=== PATIENT | female | born 1985 | race Caucasian/White ===

== ENCOUNTER → 2017-04-18 | Outpatient (CLI) | payer OTHER ==
[~2017-04-18] MED LIST: CAMRESE1 TAB PO; CLOMID50 MG PO; FLONASEALLERGY NS; LEXAPRO20 MG PO; PROBIOTIC FORMU1 CAP PO; PROTONIX 40MG T40 MG PO; PROVERA5 MG PO; TUMS EXTRA STR750 MG PO; TYLENOL 500MG500 MG PO; ZANTAC 300300 MG PO; ZOFRAN 4MG T4 MG/TAB PO; ZOFRAN ODT8 MG PO
[2017-04-18 11:42] LABS: BASO % 0.4 % (0.0-2.0); EOS % 0.2 % (0-4.0); GRAN # 2.7 (1.4-6.5); GRAN % 58.8 % (42.2-75.2); HEMOGLOBIN 13.2 g/dl (12.5-16.0); LYMPH # 1.5 (1.2-3.4); LYMPH % 31.3 % (20.0-51.0); MEAN CELL VOLUME 92 fl (80.0-100.0); MEAN CORPUSCULAR HEMOGLOBIN 30 pg (27.0-31.0); MEAN CORPUSCULAR HGB CONC 33 g/dl (33.0-37.0); MEAN PLATELET VOLUME 9.8 fl (7.4-10.4); MONO # 0.4 (0.1-0.6); MONO % 9.1 % (1.7-9.3); PLATELET COUNT 242 K/mm3 (130-400); RED BLOOD COUNT 4.35 M/mm3 (4.10-5.30); REDCELL DISTRIBUTION WIDTH-CV 13.2 % (11.5-14.5); WHITE BLOOD COUNT 4.6 K/mm3 (4.8-10.8)
[2017-04-18 11:52] LABS: ADJUSTED CALCIUM 8.2 mg/dL (8.4-10.2); ALBUMIN 3.8 gm/dL (3.5-5.0); BILIRUBIN,TOTAL 0.7 mg/dL (0.0-1.0); CREATININE, serum 0.62 mg/dL (0.52-1.25); POTASSIUM 3.9 mmol/L (3.4-5.0); TOTAL PROTEIN 6.7 gm/dL (6.4-8.2)
== END ==
LOC: COL.LAB 10:12
DX: R19.7 Diarrhea, unspecified (principal); R10.13 Epigastric pain; R11.0 Nausea

== ENCOUNTER 2017-04-21 13:27 | Day surgery (SDC) | payer OTHER ==
[~2017-04-21] VITALS: Ht 162.6 cm; Wt 60.8 kg
[2017-04-21 14:29] VITALS: BP 114/71; PULSE 68; TEMP 98.3
[2017-04-21 15:50] VITALS: BP 123/76; PULSE 79; TEMP 98
[2017-04-21 16:05] VITALS: BP 108/69; PULSE 75
[2017-04-21 16:20] VITALS: BP 110/72; PULSE 70
[2017-04-21 18:11] VITALS: BP 107/81; PULSE 93
== END 2017-04-21 16:37 | disposition home or self-care (01) ==
LOC: SDCO 13:27
DX: K21.9 Gastro-esophageal reflux disease without esophagitis (principal); K59.00 Constipation, unspecified; K22.8 Other specified diseases of esophagus; K31.89 Other diseases of stomach and duodenum; K30 Functional dyspepsia; K29.30 Chronic superficial gastritis without bleeding; J45.909 Unspecified asthma, uncomplicated; F41.9 Anxiety disorder, unspecified; F32.9 Major depressive disorder, single episode, unspecified; Z90.49 Acquired absence of other specified parts of digestive tract; Z83.71 Family history of colonic polyps
CPT/HCPCS: OP; J2250; J2405; J2704; J3010; J7030

== ENCOUNTER → 2017-05-27 | Outpatient (REF) | LOC: WSOH 14:00 | DX: Z02.89 Encounter for other administrative examinations (principal) ==

== ENCOUNTER → 2017-07-27 | Outpatient (REF) | LOC: WSOH 17:30 | DX: Z02.89 Encounter for other administrative examinations (principal) ==

== ENCOUNTER 2018-02-20 10:41 | Day surgery (SDC) | payer OTHER ==
[~2018-02-20] VITALS: Ht 162.6 cm; Wt 62.3 kg
[~2018-02-20 10:41] MED LIST changes: +ADVIL200 MG PO; +CARAFATE S1 GM/10 ML PO; +DAYSEE PO; +NASAL MOISTURIZ45 ML NS
[2018-02-20] MEDS ORDERED: CLARITIN 1010 MG/TAB PO (11:24)
[2018-02-20] MEDS ORDERED: FLONASEALLERGY NS (11:24)
[2018-02-20 11:38] VITALS: BP 102/59; PULSE 81; TEMP 97.4
[2018-02-20 14:55] VITALS: BP 106/67; PULSE 77; TEMP 99.4
[2018-02-20 15:10] VITALS: BP 103/59; PULSE 84
[2018-02-20] MEDS ORDERED: NORCO 325 MG-51 TAB PO (15:22)
[2018-02-20] MEDS ORDERED: ZOFRAN 4MG T4 MG/TAB PO (15:22)
[2018-02-20 15:25] VITALS: BP 97/52; PULSE 82
[2018-02-20 15:40] VITALS: BP 102/58; PULSE 78
[2018-02-20 15:47] VITALS: BP 98/54; PULSE 88; TEMP 99.4
== END 2018-02-20 16:10 | disposition home or self-care (01) ==
LOC: SDCO 10:41
DX: J32.0 Chronic maxillary sinusitis (principal); J32.2 Chronic ethmoidal sinusitis; J34.9 Unspecified disorder of nose and nasal sinuses; K21.9 Gastro-esophageal reflux disease without esophagitis; F32.9 Major depressive disorder, single episode, unspecified; F41.9 Anxiety disorder, unspecified; J45.909 Unspecified asthma, uncomplicated; Z88.1 Allergy status to other antibiotic agents; Z88.5 Allergy status to narcotic agent; Z88.6 Allergy status to analgesic agent; Z90.49 Acquired absence of other specified parts of digestive tract; Z79.51 Long term (current) use of inhaled steroids
CPT/HCPCS: J0330; J1100; J1170; J2405; J2704; J3010; J7120

== ENCOUNTER → 2018-07-19 | Outpatient (CLI) | payer OTHER ==
[~2018-07-19] MED LIST changes: +CLARITIN 1010 MG/TAB PO; +NORCO 325 MG-51 TAB PO
== END ==
LOC: COL.RAD 10:26
DX: N94.6 Dysmenorrhea, unspecified (principal); N92.0 Excessive and frequent menstruation with regular cycle; R93.8 Abnormal findings on diagnostic imaging of other specified body structures

== ENCOUNTER → 2018-08-08 | Outpatient (CLI) | payer OTHER | LOC: COL.RAD 07:56 | DX: N93.9 Abnormal uterine and vaginal bleeding, unspecified (principal); R93.89 Abnormal findings on diagnostic imaging of other specified body structures; Z90.49 Acquired absence of other specified parts of digestive tract | CPT/HCPCS: Q9967 ==

== ENCOUNTER → 2018-08-21 | Outpatient (CLI) | payer OTHER | LOC: COL.RAD 12:15 | DX: N93.9 Abnormal uterine and vaginal bleeding, unspecified (principal) | CPT/HCPCS: A9585 ==

== ENCOUNTER 2018-09-04 12:21 | Emergency (ER) | payer OTHER ==
[~2018-09-04] VITALS: Ht 162.6 cm; Wt 66.3 kg
[2018-09-04 12:35] VITALS: TEMP 98.4
[2018-09-04 13:37] LABS: BASO % 0.2 % (0.0-2.0); GRAN # 9.2 (1.4-6.5); GRAN % 89.9 % (42.2-75.2); HEMATOCRIT 41.3 % (37.0-47.0); LYMPH # 0.6 (1.2-3.4); LYMPH % 6.2 % (20.0-51.0); MEAN CELL VOLUME 88 fl (80.0-100.0); MEAN CORPUSCULAR HEMOGLOBIN 30 pg (27.0-31.0); MEAN CORPUSCULAR HGB CONC 34 g/dl (33.0-37.0); MEAN PLATELET VOLUME 8.8 fl (7.4-10.4); MONO # 0.4 (0.1-0.6); MONO % 3.4 % (1.7-9.3); PLATELET COUNT 274 K/mm3 (130-400)
[2018-09-04 13:47] LABS: BILIRUBIN,TOTAL 0.7 mg/dL (0.0-1.0); C-REACTIVE PROTEIN 2.2 mg/dL (0.0-0.9); CALCIUM 8.9 mg/dL (8.4-10.2); CREATININE, serum 0.6 mg/dL (0.52-1.25); POTASSIUM 3.8 mmol/L (3.4-5.0)
[2018-09-04] MEDS ORDERED: YAZ 28 3 MG-0.01 TAB PO (13:58)
[2018-09-04] MEDS ORDERED: ZYRTEC 10MG10 MG PO (13:59)
[2018-09-04] MEDS ORDERED: MASON NATURAL2000 IU (13:59)
[2018-09-04] MEDS ORDERED: AMOXICILLIN 8751 TAB PO (14:00)
[2018-09-04 14:13] LABS: COLLECTION METHOD CLEAN CATCH
[2018-09-04 14:21] LABS: MUCOUS Present /lpf; PH 5 (5-8); URINE APPEARANCE Clear; URINE BACTERIA Rare /hpf; URINE BILIRUBIN Negative (NEGATIVE); URINE BLOOD Negative (NEGATIVE); URINE COLOR Yellow; URINE GLUCOSE Negative (NEGATIVE); URINE KETONE Trace (NEGATIVE); URINE LEUKOCYTE ESTERASE Negative (NEGATIVE); URINE NITRATE Negative (NEGATIVE); URINE PROTEIN(semi-quant) 1+ (NEGATIVE); URINE RBC 0-2 /hpf; URINE UROBILINOGEN Negative (NEGATIVE)
[2018-09-04] MEDS ORDERED: PERCOCET 325 MG1 TA2 PO (14:53)
[2018-09-04] MEDS ORDERED: CARAFATE 1GM1 G PO (14:53)
[2018-09-04] MEDS ORDERED: ZOFRAN ODT4 MG PO (14:53)
[2018-09-04 15:07] VITALS: BP 120/76; PULSE 97
== END 2018-09-04 15:08 | disposition home or self-care (01) ==
LOC: COL.ER 12:21
PROVIDERS: Emergency Medicine
DX: K29.70 Gastritis, unspecified, without bleeding (principal); K21.9 Gastro-esophageal reflux disease without esophagitis; Z90.49 Acquired absence of other specified parts of digestive tract
CPT/HCPCS: J2060; J2405; J2550; J3010; J7030

== ENCOUNTER 2018-09-25 10:28 | Day surgery (SDC) | payer OTHER ==
[~2018-09-25] VITALS: Ht 162.6 cm; Wt 65.0 kg
[~2018-09-25 10:28] MED LIST changes: +AMOXICILLIN 8751 TAB PO; +CARAFATE 1GM1 G PO; +MASON NATURAL2000 IU PO; +PERCOCET 325 MG1 TA2 PO; +YAZ 28 3 MG-0.01 TAB PO; +ZOFRAN ODT4 MG PO; +ZYRTEC 10MG10 MG PO
[2018-09-25] MEDS ORDERED: CARAFATE 1GM1 G PO (10:57)
[2018-09-25] MEDS ORDERED: PERCOCET 325 MG1 TA2 PO ×2 (10:57→15:12)
[2018-09-25] MEDS ORDERED: FLEXERIL 1010 MG/TAB PO (10:58)
[2018-09-25] MEDS ORDERED: COLACE 100100 MG/CAP PO (10:59)
[2018-09-25 11:18] VITALS: BP 117/75; PULSE 70; TEMP 97.9
[2018-09-25 14:30] VITALS: BP 99/54; PULSE 78; TEMP 98.8
[2018-09-25 14:45] VITALS: BP 102/72; PULSE 77
[2018-09-25 15:00] VITALS: BP 101/60; PULSE 76
[2018-09-25 15:15] VITALS: BP 98/67; PULSE 80
== END 2018-09-25 15:45 | disposition home or self-care (01) ==
LOC: SDCO 10:28
DX: R10.30 Lower abdominal pain, unspecified (principal); K66.0 Peritoneal adhesions (postprocedural) (postinfection); Z79.899 Other long term (current) drug therapy; Z86.72 Personal history of thrombophlebitis; K21.9 Gastro-esophageal reflux disease without esophagitis; F32.9 Major depressive disorder, single episode, unspecified; F41.9 Anxiety disorder, unspecified; J45.909 Unspecified asthma, uncomplicated
CPT/HCPCS: J1100; J1956; J2175; J2405; J2704; J3010; J7120

== ENCOUNTER 2018-11-01 11:53 | Day surgery (SDC) | payer OTHER ==
[~2018-11-01] VITALS: Ht 162.6 cm; Wt 65.1 kg
[~2018-11-01 11:53] MED LIST changes: +COLACE 100100 MG/CAP PO; +FLEXERIL 1010 MG/TAB PO; +KRATOM PO; -MASON NATURAL2000 IU PO; +VITAMIND3 5000 PO
[2018-11-01 17:00] VITALS: BP 109/47; PULSE 78
[2018-11-01 17:15] VITALS: BP 105/64; PULSE 92
[2018-11-01] MEDS ORDERED: PERCOCET 325 MG1 TA2 PO (17:17)
[2018-11-01 17:30] VITALS: BP 111/58; PULSE 87
[2018-11-01 18:09] VITALS: BP 103/58; PULSE 76; TEMP 99.6
== END 2018-11-01 18:01 | disposition home or self-care (01) ==
LOC: SDCO 11:53
DX: J32.1 Chronic frontal sinusitis (principal); Z79.899 Other long term (current) drug therapy; K21.9 Gastro-esophageal reflux disease without esophagitis; M51.36 Other intervertebral disc degeneration, lumbar region; F32.9 Major depressive disorder, single episode, unspecified; F41.9 Anxiety disorder, unspecified
CPT/HCPCS: J1100; J1170; J2405; J2704; J3010; J7120

== ENCOUNTER 2018-11-15 05:33 | Day surgery (SDC) | payer OTHER ==
[~2018-11-15] VITALS: Ht 162.6 cm; Wt 65.0 kg
[2018-11-15] VITALS (12 sets, daily range): BP systolic 91–115; BP diastolic 51–77; PULSE 72–104; TEMP 97.7–98.5
[~2018-11-15 05:33] MED LIST changes: +CIPRO 500MG TA500 MG PO
[2018-11-15] MEDS ORDERED: IBU600 MG PO (16:44)
[2018-11-15] MEDS ORDERED: PERCOCET 325 MG1 TA2 PO (16:44)
[2018-11-16 04:30] VITALS: BP 104/65; PULSE 89; TEMP 98
[2018-11-16 07:30] VITALS: BP 101/61; PULSE 80
--- NOTE | 2018-11-16 09:14 | NUR ---
Initial visit; Patient experiencing discomfort. Patcher offered encouragement and prayer for a rapid recovery.
== END 2018-11-16 09:30 | disposition home or self-care (01) ==
LOC: SDCO 05:33 → OB 10:13 → SDCO 16:42 → OB 16:43 → SDCO 16:43 → OB 11-16 09:30
DX: D06.9 Carcinoma in situ of cervix, unspecified (principal); G89.29 Other chronic pain; R10.2 Pelvic and perineal pain; N94.6 Dysmenorrhea, unspecified; N92.0 Excessive and frequent menstruation with regular cycle; K21.9 Gastro-esophageal reflux disease without esophagitis; J32.9 Chronic sinusitis, unspecified; F41.9 Anxiety disorder, unspecified; F32.9 Major depressive disorder, single episode, unspecified; G43.909 Migraine, unspecified, not intractable, without status migrainosus; D68.59 Other primary thrombophilia; Z88.8 Allergy status to other drugs, medicaments and biological substances; Z88.1 Allergy status to other antibiotic agents; Z88.5 Allergy status to narcotic agent; Z82.49 Family history of ischemic heart disease and other diseases of the circulatory system; Z83.3 Family history of diabetes mellitus; Z82.3 Family history of stroke; Z80.0 Family history of malignant neoplasm of digestive organs; Z90.49 Acquired absence of other specified parts of digestive tract
CPT/HCPCS: A4314; J1100; J1170; J1956; J2175; J2300; J2405; J2704; J3010; J7120

== ENCOUNTER → 2018-11-22 | Outpatient (CLI) | payer OTHER ==
[~2018-11-22] MED LIST changes: +IBU600 MG PO
== END ==
LOC: COL.RAD 11:33
DX: G89.18 Other acute postprocedural pain (principal); Z90.710 Acquired absence of both cervix and uterus
CPT/HCPCS: Q9967

== ENCOUNTER 2018-12-21 23:07 | Emergency (ER) | payer OTHER ==
[~2018-12-21] VITALS: Ht 162.6 cm; Wt 63.6 kg
[2018-12-21 23:10] VITALS: TEMP 98.3
[2018-12-21 23:58] LABS: BASO % 0.4 % (0.0-2.0); EOS # 0.2 (0.0-0.7); EOS % 2.7 % (0-4.0); GRAN # 3.9 (1.4-6.5); HEMATOCRIT 39.1 % (37.0-47.0); HEMOGLOBIN 13.1 g/dl (12.5-16.0); LYMPH # 2.7 (1.2-3.4); LYMPH % 36.4 % (20.0-51.0); MEAN CELL VOLUME 87 fl (80.0-100.0); MEAN CORPUSCULAR HEMOGLOBIN 29 pg (27.0-31.0); MEAN CORPUSCULAR HGB CONC 34 g/dl (33.0-37.0); MONO # 0.5 (0.1-0.6); MONO % 6.2 % (1.7-9.3); PLATELET COUNT 298 K/mm3 (130-400); REDCELL DISTRIBUTION WIDTH-CV 12.9 % (11.5-14.5)
[2018-12-22 00:34] LABS: ALANINE AMINOTRANSFERASE 18 U/L (9-52); ALBUMIN 4.2 gm/dL (3.5-5.0); ALKALINE PHOSPHATASE 56 U/L (50-136); ANION GAP 10 mmol/L (7-16); AST,SGOT 19 U/L (15-37); BILIRUBIN,TOTAL 0.3 mg/dL (0.0-1.0); BLOOD UREA NITROGEN 15 mg/dL (7-17); CALCIUM 9.7 mg/dL (8.4-10.2); CARBON DIOXIDE 23 mmol/L (22-30); CHLORIDE 106 mmol/L (98-107); CREATININE, serum 0.81 mg/dL (0.52-1.25); GLUCOSE 109 mg/dL (74-106); LIPASE 135 U/L (23-300); SODIUM 140 mmol/L (137-145); TOTAL PROTEIN 7.2 gm/dL (6.4-8.2)
[2018-12-22 00:43] LABS: ACETAMINOPHEN < 10 ug/mL (10-30); ALCOHOL(ethanol),MEDICAL < 10 mg/dL; SALICYLATE < 1.0 mg/dL
[2018-12-22] MEDS ORDERED: ATARAX 25MG25 MG/TAB PO (01:30)
[2018-12-22 01:45] VITALS: BP 101/64; PULSE 85
== END 2018-12-22 02:10 | disposition home or self-care (01) ==
LOC: COL.ER 23:07
PROVIDERS: Emergency Medicine
DX: F41.0 Panic disorder [episodic paroxysmal anxiety] (principal); F41.9 Anxiety disorder, unspecified; Z90.49 Acquired absence of other specified parts of digestive tract
CPT/HCPCS: J1200; J1630; J2060; J2550

== ENCOUNTER 2018-12-28 18:08 | Observation (INO) | payer OTHER ==
[~2018-12-28] VITALS: Ht 162.6 cm; Wt 68.1 kg
[~2018-12-28 18:08] MED LIST changes: +ATARAX 25MG25 MG/TAB PO
[2018-12-28 19:19] LABS: BASO % 0.3 % (0.0-2.0); EOS # 0.3 (0.0-0.7); EOS % 2.4 % (0-4.0); GRAN # 6.9 (1.4-6.5); GRAN % 62.2 % (42.2-75.2); HEMATOCRIT 37.3 % (37.0-47.0); HEMOGLOBIN 12.7 g/dl (12.5-16.0); LYMPH # 3.2 (1.2-3.4); LYMPH % 29.2 % (20.0-51.0); MEAN CELL VOLUME 87 fl (80.0-100.0); MEAN CORPUSCULAR HEMOGLOBIN 30 pg (27.0-31.0); MEAN CORPUSCULAR HGB CONC 34 g/dl (33.0-37.0); MEAN PLATELET VOLUME 8.9 fl (7.4-10.4); MONO # 0.6 (0.1-0.6); MONO % 5.5 % (1.7-9.3); PLATELET COUNT 326 K/mm3 (130-400); RED BLOOD COUNT 4.31 M/mm3 (4.10-5.30)
[2018-12-28] MEDS ORDERED: ATIVAN 0.50.5 MG/TAB PO (19:27)
[2018-12-28] MEDS ORDERED: CARAFATE 1GM1 G PO (19:27)
[2018-12-28 19:30] LABS: ALANINE AMINOTRANSFERASE 57 U/L (9-52); ALBUMIN 4.4 gm/dL (3.5-5.0); ALKALINE PHOSPHATASE 87 U/L (50-136); ANION GAP 13 mmol/L (7-16); AST,SGOT 126 U/L (15-37); BILIRUBIN,TOTAL 0.6 mg/dL (0.0-1.0); BLOOD UREA NITROGEN 10 mg/dL (7-17); C-REACTIVE PROTEIN < 0.5 mg/dL (0.0-0.9); CALCIUM 9.8 mg/dL (8.4-10.2); CARBON DIOXIDE 23 mmol/L (22-30); CHLORIDE 100 mmol/L (98-107); CREATININE, serum 0.71 mg/dL (0.52-1.25); GLUCOSE 142 mg/dL (74-106); LIPASE 256 U/L (23-300); POTASSIUM 3.1 mmol/L (3.4-5.0); SODIUM 136 mmol/L (137-145); TOTAL PROTEIN 7.4 gm/dL (6.4-8.2)
[2018-12-28 19:50] LABS: COLLECTION METHOD CLEAN CATCH
[2018-12-28 19:56] LABS: PH 7 (5-8); SQUAMOUS EPITHELIAL 0-2 /hpf; URINE APPEARANCE Clear; URINE BACTERIA Rare /hpf; URINE BILIRUBIN Negative (NEGATIVE); URINE BLOOD Negative (NEGATIVE); URINE COLOR Yellow; URINE GLUCOSE Negative (NEGATIVE); URINE KETONE 1+ (NEGATIVE); URINE LEUKOCYTE ESTERASE Negative (NEGATIVE); URINE NITRATE Negative (NEGATIVE); URINE PROTEIN(semi-quant) Negative (NEGATIVE); URINE RBC 0-2 /hpf; URINE UROBILINOGEN Negative (NEGATIVE)
[2018-12-28 23:08] VITALS: BP 117/64; PULSE 84; TEMP 98.6
--- NOTE | 2018-12-28 23:30 | NUR ---
PT ADMITTED TO SURGICAL FLOOR. A&O X4. IV FLUIDS INFUSING WITHOUT ISSUE. PT REQUESTING PRN PAIN MEDS, STATED SHE STARTING TO FEEL THE PAIN AND WANTS TO STAY ON TOP OF IT. NO OTHER ISSUES OR CONSERNS VOICED.
--- NOTE | 2018-12-29 07:00 | NUR ---
PT HAS RECIEVED A COUPLE OF ROUND OF PAIN MEDICATION THIS NOC. POTASSIUM INFUSING CONCURRENLY WITH NS. SITE HAS SOME MINIMAL LEAKING, IV SITE REPOSIITONED AND REDRESSED, NOTED BLOOD RETURN FROM SITE AND FLUSHED WELL. IV SITE REMAINED UNREMARKABLE AFTERWARDS, FLUIDS RESTARTED RIGHT AFTER AND RUNNING WITHOUT ISSUE. NO OTHER ISSUES OR CONSERNS VOICED THIS NOC.
--- NOTE | 2018-12-29 07:30 | NUR ---
Report received from LORENA Hunt. Per pt IV site leaking, LORENA Kellogg on floor fixed it and now is running well in R A/C.
[2018-12-29 07:36] LABS: BASO % 0.5 % (0.0-2.0); EOS # 0.4 (0.0-0.7); EOS % 6.1 % (0-4.0); GRAN # 3.3 (1.4-6.5); GRAN % 52.1 % (42.2-75.2); HEMOGLOBIN 11.1 g/dl (12.5-16.0); LYMPH # 2.2 (1.2-3.4); LYMPH % 34.8 % (20.0-51.0); MEAN CELL VOLUME 89 fl (80.0-100.0); MEAN CORPUSCULAR HEMOGLOBIN 30 pg (27.0-31.0); MEAN CORPUSCULAR HGB CONC 33 g/dl (33.0-37.0); MEAN PLATELET VOLUME 9.3 fl (7.4-10.4); MONO # 0.4 (0.1-0.6); MONO % 6.3 % (1.7-9.3); PLATELET COUNT 253 K/mm3 (130-400); RED BLOOD COUNT 3.76 M/mm3 (4.10-5.30); REDCELL DISTRIBUTION WIDTH-CV 13.2 % (11.5-14.5)
[2018-12-29 07:37] LABS: HEMATOCRIT 33.6 % (37.0-47.0)
[2018-12-29 07:54] LABS: ALBUMIN 3.3 gm/dL (3.5-5.0); BILIRUBIN,TOTAL 0.4 mg/dL (0.0-1.0); CALCIUM 8.7 mg/dL (8.4-10.2); CREATININE, serum 0.7 mg/dL (0.52-1.25); POTASSIUM 4.1 mmol/L (3.4-5.0); TOTAL PROTEIN 5.7 gm/dL (6.4-8.2)
[2018-12-29 08:24] VITALS: BP 97/71; PULSE 64; TEMP 98
--- NOTE | 2018-12-29 08:26 | NUR ---
Assessment charted. PT reports pain at 5/10 to RUQ that will spread to flank on occasion. IVF and potassium running. Pain and nausea under control with medications. Denies needs, will continue to monitor.
--- NOTE | 2018-12-29 10:28 | NUR ---
Initial visit; Patient thanked Coffee Grinder for looking in on her, visiting and keeping her in Coffee Grinder's prayers.
--- NOTE | 2018-12-29 10:57 | NUR ---
Pt went down to MRI with MRI staff, will continue to monitor.
[2018-12-29 12:43] VITALS: BP 106/61; PULSE 69; TEMP 98.5
--- NOTE | 2018-12-29 12:58 | NUR ---
Pt returned form MRCP at approximately 1140 with diffuse abd pain and nausea. Gave remaining dose of IV fentanyl. Called Ashley as pain and nausea is not resolved, she will see the patient and we will continue to monitor.
--- NOTE | 2018-12-29 14:00 | NUR ---
Started MANAGER CT level 1 dilaudid per orders for diffuse abdominal pain. Pt exhibits no signs of guarding or retracting from pain. Verified with supervisor wash house Asa. Will continue to monitor.
--- NOTE | 2018-12-29 14:42 | NUR ---
SATNAM and SW student met with the patient to discuss discharge plan. The patient lives in [place] with her (Girish) and daughter. The patient does not use any DME and reports independence with ADLs. The patient's PCP is Dr. Cher Duron and she receives her medications from [facility]. The patient reports no difficulties obtaining her medications. The patient does not have a DPOA-HC for completed but was interested in obatining the form. SATNAM provided the form. The patient plans to return home with her family upon discharge. No additional needs at this time.
[2018-12-29 15:50] VITALS: BP 107/76; PULSE 81; TEMP 97.5
--- NOTE | 2018-12-29 18:34 | NUR ---
Pt has done well and pain is managed since MATHEMATICS TEACHER was initiated. Pt has had visitors to see her this evening. IVF continues with MATHEMATICS TEACHER to RH. Will give bedside shift report to nightshifarzana carrero who will resuem care.
[2018-12-29 20:00] VITALS: BP 101/73; PULSE 101
--- NOTE | 2018-12-29 21:00 | NUR ---
Patient resting in bed at this time. Patient is alert and oriented, answers questions appropriately. Dilaudid level [address] per order. Patient complains of a headache that is not relieved with LABORER VEGETABLE FARM use. Patient reports that she sometimes uses NSAIDs at home to relieve headaches, but is worried that they will worsen her nausea since she is NPO. Patient decides to attempt to sleep to see if that relieves her headache. Administered PRN zofran for nausea. Call light within reach.
[2018-12-29 21:39] VITALS: BP 101/73; PULSE 101; TEMP 100.7; TEMP 98.7
[2018-12-29 23:57] VITALS: BP 103/63; PULSE 119; TEMP 99.6
[2018-12-30] VITALS (11 sets, daily range): BP systolic 94–116; BP diastolic 53–68; PULSE 92–119; TEMP 98–99.5
--- NOTE | 2018-12-30 00:45 | NUR ---
Patient continues to c/o headache and nausea, also running a low grade fever with some tachycardia. Called hospitalist to report symptoms. Patient reports that she has had migranes in the past, but hasn't had one for "years" and did not take medication for it. States she is willing to try medication for a migrane. Administered SQ imitrex per order. Patient requests PRN zofran, informed patient that it is about half an hour too soon, but will bring it as soon as order allows. Call light within reach.
--- NOTE | 2018-12-30 02:12 | NUR ---
ON 12/29/18 AT 2300 PER PT REQUEST RADIOLOGY ADMINISTRATOR AND ETCO2 WERE SHUT OFF. NO CHECKS HAVE BEEN DONE SINCE THEN. HOWEVER AN ORDER IS STILL IN IF PT WANTS TO GO BACK ON IT AND WILL NOT DC INTERVENTION
--- NOTE | 2018-12-30 05:45 | NUR ---
Patient requested DISTRICT CAPTAIN be turned off around 2300 last night so she could sleep without the EtCO2 alarming. Pump was turned off per patient request with instructions to call when she needed it turned back on. Patient called at approximately 0230 and DISTRICT CAPTAIN was turned back on per order and patient request. Patient reports that the SQ imitrex has relieved her headache and she was able to sleep for a few hours. Patient has no complaints of nausea this morning and was independent to bathroom and to brush her teeth this morning. Patient denies further needs at this time, call light within reach.
--- NOTE | 2018-12-30 08:00 | NUR ---
PATIENT IS RESTING IN BED. PATIENT IS DROWSY THIS MORNING BUT AROUSES EASILY TO NAME. PATIENT IS A&O. VSS. BOWEL SOUNDS ACTIVE ALL FOUR QUADRANTS. PATIENT IS NPO. PATIENT DENIES ANY COMPLAINTS OF N/V. POSITIVE PEDAL PULSES EQUAL BILATERALLY. IV FLUIDS AND LACE ROLLER OPERATOR INFUSING TO RIGHT HAND IV VIA PUMP. CALL LIGHT WITHIN REACH. PATIENT DENIES ANY OTHER NEEDS AT THIS TIME.
[2018-12-30 08:06] LABS: BASO % 0.3 % (0.0-2.0); EOS # 0.1 (0.0-0.7); EOS % 0.6 % (0-4.0); GRAN % 81.1 % (42.2-75.2); HEMOGLOBIN 11.8 g/dl (12.5-16.0); LYMPH # 1.6 (1.2-3.4); LYMPH % 13.2 % (20.0-51.0); MEAN CELL VOLUME 90 fl (80.0-100.0); MEAN CORPUSCULAR HEMOGLOBIN 29 pg (27.0-31.0); MEAN CORPUSCULAR HGB CONC 33 g/dl (33.0-37.0); MONO # 0.6 (0.1-0.6); MONO % 4.5 % (1.7-9.3); PLATELET COUNT 251 K/mm3 (130-400); RED BLOOD COUNT 4.02 M/mm3 (4.10-5.30); REDCELL DISTRIBUTION WIDTH-CV 13.1 % (11.5-14.5)
[2018-12-30 08:12] LABS: HEMATOCRIT 36.3 % (37.0-47.0)
[2018-12-30 08:26] LABS: ALBUMIN 3.7 gm/dL (3.5-5.0); BILIRUBIN,TOTAL 0.7 mg/dL (0.0-1.0); CALCIUM 8.6 mg/dL (8.4-10.2); CREATININE, serum 0.76 mg/dL (0.52-1.25); MAGNESIUM 1.7 mg/dL (1.6-2.3); TOTAL PROTEIN 6.3 gm/dL (6.4-8.2)
--- NOTE | 2018-12-30 11:50 | NUR ---
PATIENT GIVEN PRN DOSE OF IV DILAUDID PUSH DUE TO ANALOG IC DESIGN ENGINEER PUMP BEING EMPTY AND NO NEW ANALOG IC DESIGN ENGINEER VIALS IN OMNICELL. PATIENT BECAME NAUSEATED AFTER IV DILAUDID PUSH AND REQUESTED NAUSEA MEDICATION. PATIENT DEVELOPED HIVES AROUND IV SITE AND SKIN BECAME REDDENED. PATIENT GIVEN IV ZOFRAN AND BENADRYL. DR. HUNG NOTIFIED OF REACTION TO IV DILAUDID PUSH. NO ORDERS GIVEN AT THIS TIME. WILL CONTINUE TO MONITOR PATIENT'S ALLERGIC REACTION AND RESPIRATORY STATUS.
--- NOTE | 2018-12-30 17:17 | NUR ---
UPON ENTRY TO ROOM PATIENT HAS FACIAL FLUSHING. PATIENT REPORTS ACHING PAIN IN HER HEAD THAT WRAPS AROUND TO THE BASE OF HER NECK A 9/10 ON A 0-10 SCALE. PATIENT ALSO REPORTS SINUS PRESSURE WITH BLOOD-TINGED DRAINAGE WHEN SHE BLOWS HER NOSE. DR. HUNG NOTIFIED. ONE TIME DOSE OF ROBAXIN ORDERED.
--- NOTE | 2018-12-30 17:30 | NUR ---
PATIENT GIVEN PRN DOSE OF ZOFRAN FOR NAUSEA. WILL CONTINUE TO MONITOR.
--- NOTE | 2018-12-30 19:01 | NUR ---
REPORT GIVEN TO RICHARD UGALDE.
--- NOTE | 2018-12-30 20:00 | NUR ---
Patient resting in bed at this time. Patient is alert and oriented, answers questions appropriately. MANAGER UTILITY in place per order. Patient remains independent in her room. Denies needs at this time, but does request several PRN medications with her HS meds. Call light within reach.
[2018-12-31] VITALS (9 sets, daily range): BP systolic 102–119; BP diastolic 62–88; PULSE 73–110; TEMP 98–99.2
--- NOTE | 2018-12-31 08:00 | NUR ---
PATIENT SITTING UP IN BED THIS MORNING. PATIENT IS DROWSY, BUT EASILY AROUSABLE TO NAME. FACIAL FLUSHING NOTED UPON ASSESSMENT. PATIENT IS A&O. VSS. BOWEL SOUNDS ACTIVE ALL FOUR QUADRANTS. PATIENT TOLERATING CLEAR LIQUIDS. PATIENT STATES THAT SHE FEELS NAUSEATED, BUT DENIES ANY EPISODES OF EMESIS AT THIS TIME. POSITIVE PEDAL PULSES EQUAL BILATERALLY. NON-PITTING EDEMA TO FEET BILATERALLY. IV FLUIDS WITH DILAUDID SOLUTION LEAD INFUSING TO RIGHT HAND IV VIA PUMP. CALL LIGHT WITHIN REACH. PATIENT DENIES ANY OTHER NEEDS AT THIS TIME.
[2018-12-31 08:09] LABS: BASO % 0.1 % (0.0-2.0); EOS # 0.1 (0.0-0.7); EOS % 1.3 % (0-4.0); GRAN # 5.9 (1.4-6.5); GRAN % 71.7 % (42.2-75.2); HEMATOCRIT 32.3 % (37.0-47.0); HEMOGLOBIN 10.4 g/dl (12.5-16.0); LYMPH # 1.6 (1.2-3.4); LYMPH % 20.1 % (20.0-51.0); MEAN CELL VOLUME 91 fl (80.0-100.0); MEAN CORPUSCULAR HEMOGLOBIN 29 pg (27.0-31.0); MEAN CORPUSCULAR HGB CONC 32 g/dl (33.0-37.0); MEAN PLATELET VOLUME 8.9 fl (7.4-10.4); MONO # 0.5 (0.1-0.6); MONO % 6.6 % (1.7-9.3); PLATELET COUNT 214 K/mm3 (130-400); RED BLOOD COUNT 3.55 M/mm3 (4.10-5.30); REDCELL DISTRIBUTION WIDTH-CV 13.3 % (11.5-14.5)
[2018-12-31 08:28] LABS: ALBUMIN 3.5 gm/dL (3.5-5.0); BILIRUBIN,TOTAL 0.4 mg/dL (0.0-1.0); CALCIUM 8.3 mg/dL (8.4-10.2); CREATININE, serum 0.63 mg/dL (0.52-1.25); POTASSIUM 4.1 mmol/L (3.4-5.0); TOTAL PROTEIN 5.9 gm/dL (6.4-8.2)
--- NOTE | 2018-12-31 09:18 | NUR ---
IV CIPRO GIVEN LATE DUE TO NO ANTIBIOTICS ON THE FLOOR.
--- NOTE | 2018-12-31 10:25 | NUR ---
PATIENT REQUESTED MEDICATION FOR CONSTIPATION. PATIENT GIVEN PRN DOSE OF MIRALAX.
--- NOTE | 2018-12-31 10:30 | NUR ---
BORING MACHINE OPERATOR VERTICAL STOPPED AND DISCONNECTED PER DR. HUNG'S ORDERS.
--- NOTE | 2018-12-31 11:37 | NUR ---
PATIENT RATES HER THROBBING HEAD PAIN A 7/10 ON A 0-10 SCALE. PATIENT GIVEN PRN DOSE OF ORAL OXYCODONE. WILL CONTINUE TO MONITOR.
--- NOTE | 2018-12-31 12:55 | NUR ---
PATIENT TOOK A SIP OF A MILKSHAKE AND BECAME NAUSEATED. PATIENT REQUESTED MEDICATION FOR NAUSEA, WELL MEDICATION FOR HER THROBBING MIGRAINE. PATIENT GIVEN PRN DOSE OF IV ZOFRAN AND A SQ IMITREX INJECTION. WILL CONTINUE TO MONITOR.
--- NOTE | 2018-12-31 19:04 | NUR ---
PATIENT HAS BEEN INDEPENDENT WITHIN HER ROOM THROUGHOUT THE SHIFT. PATIENT AMBULATED IN THE HALLS MULTIPLE TIMES THIS AFTERNOON. REPORT GIVEN TO LORENA CONNOR.
--- NOTE | 2018-12-31 20:40 | NUR ---
Pt resting with HOB elevated. Pt c/o pain 5/10 in head. Pt states the pain is in her forhead and back of her head. She says "I think I have another sinus infection". She does report that her pain has improve since earlier. Pt also c/o constipation. Assessment WNL. No distress noted. Will continue to monitor.
--- NOTE | 2018-12-31 21:23 | NUR ---
Pt c/o nausea. PRN zofran admisitered. Pt also requested Benadryl. No distress noted at this time. Will continue to monitor.
--- NOTE | 2019-01-01 00:05 | NUR ---
Pt reports having a BM and feeling relief after stool softeners.
[2019-01-01 04:39] VITALS: BP 117/77; PULSE 82; TEMP 98.2
--- NOTE | 2019-01-01 06:30 | NUR ---
Pt has slept intermittently throughout the night. Pt consistently c/o sinus pain/tension headache that was never completely relieved with PRN medication. VSS. Pt assessment unchanged and within normal limits. Pt expresses desire to be seen by Dr. Martinez during her stay in the hospital d/t sinus issues.
[2019-01-01 07:10] LABS: BASO % 0.2 % (0.0-2.0); EOS # 0.3 (0.0-0.7); EOS % 5.5 % (0-4.0); GRAN # 2.1 (1.4-6.5); GRAN % 44.9 % (42.2-75.2); LYMPH % 42.3 % (20.0-51.0); MEAN CELL VOLUME 89 fl (80.0-100.0); MEAN CORPUSCULAR HEMOGLOBIN 29 pg (27.0-31.0); MEAN CORPUSCULAR HGB CONC 33 g/dl (33.0-37.0); MEAN PLATELET VOLUME 9.2 fl (7.4-10.4); MONO # 0.3 (0.1-0.6); MONO % 7.1 % (1.7-9.3); PLATELET COUNT 190 K/mm3 (130-400); RED BLOOD COUNT 3.41 M/mm3 (4.10-5.30); REDCELL DISTRIBUTION WIDTH-CV 13.2 % (11.5-14.5)
[2019-01-01 07:20] LABS: BILIRUBIN,TOTAL 0.3 mg/dL (0.0-1.0); CALCIUM 8.5 mg/dL (8.4-10.2); CREATININE, serum 0.51 mg/dL (0.52-1.25); POTASSIUM 3.4 mmol/L (3.4-5.0); TOTAL PROTEIN 5.4 gm/dL (6.4-8.2)
[2019-01-01 07:21] LABS: HEMATOCRIT 30.4 % (37.0-47.0)
[2019-01-01] MEDS ORDERED: LEVBID0.375 MG PO (08:03)
[2019-01-01 08:30] VITALS: BP 112/75; PULSE 86; TEMP 98.2
[2019-01-01] MEDS ORDERED: OCEAN NASAL SPR45 ML NS (09:15)
[2019-01-01] MEDS ORDERED: FLONASE NASAL S16 GM NS (09:15)
[2019-01-01] MEDS ORDERED: CIPRO 500MG TA500 MG PO (09:33)
[2019-01-01] MEDS ORDERED: ROXICODONE 55 MG/TAB PO (09:35)
[2019-01-01 11:53] VITALS: BP 122/73; PULSE 81; TEMP 98.3
--- NOTE | 2019-01-01 12:25 | NUR ---
PATIENT DISCHARGING VIA WHEELCHAIR TO PERSONAL VEHICLE WITH FRIEND. GAVE DISCHARGE INSTRUCTIONS, PRESCRIPTION AND FOLLOW UP APTS. ANSWERED QUESTIONS/CONCERNS. YOLY LEWIS DC'Kelly IV. COVERED SITE WITH GAUZE & TAPE. PATIENT DRESSED AND READY FOR DISCHARGE.
== END 2019-01-01 12:30 | disposition home or self-care (01) ==
LOC: COL.ER 18:08 → MEDICAL 20:08 → JCC 20:08
PROVIDERS: Family Medicine; Hospitalist; Nurse Practitioner Family; Physician Assistant; ADMIT Hospitalist
DX: R10.11 Right upper quadrant pain (principal); R74.0 Nonspecific elevation of levels of transaminase and lactic acid dehydrogenase [LDH]; E87.6 Hypokalemia; L50.0 Allergic urticaria; T40.2X5A Adverse effect of other opioids, initial encounter; Y92.239 Unspecified place in hospital as the place of occurrence of the external cause; R51 Headache; J34.89 Other specified disorders of nose and nasal sinuses; Z90.49 Acquired absence of other specified parts of digestive tract; Z90.710 Acquired absence of both cervix and uterus; Z87.59 Personal history of other complications of pregnancy, childbirth and the puerperium; F32.9 Major depressive disorder, single episode, unspecified; F41.9 Anxiety disorder, unspecified; K21.9 Gastro-esophageal reflux disease without esophagitis; Z87.19 Personal history of other diseases of the digestive system
CPT/HCPCS: 99232-AI; 99239; G0378; J0744; J1170; J1200; J2405; J2550; J3010; J3030; J3475; J3480; J7030; Q9967

== ENCOUNTER → 2019-04-03 | Outpatient (CLI) | payer OTHER ==
[~2019-04-03] MED LIST changes: +ATIVAN 0.50.5 MG/TAB PO; +FLONASE NASAL S16 GM NS; +LEVBID0.375 MG PO; +OCEAN NASAL SPR45 ML NS; +ROXICODONE 55 MG/TAB PO
== END ==
LOC: COL.RAD 13:30
DX: M54.6 Pain in thoracic spine (principal); M54.5 Low back pain; R20.2 Paresthesia of skin; G89.29 Other chronic pain

== ENCOUNTER → 2019-04-30 | Outpatient (CLI) | payer OTHER | LOC: MHCPAIN 09:17 | DX: G89.29 Other chronic pain (principal); M53.3 Sacrococcygeal disorders, not elsewhere classified | CPT/HCPCS: G0463 ==

== ENCOUNTER 2019-08-26 01:10 | Emergency (ER) | payer BC ==
[~2019-08-26] VITALS: Ht 162.6 cm; Wt 68.2 kg
[2019-08-26 01:13] VITALS: BP 140/78; TEMP 97.3
[2019-08-26 01:55] LABS: BASO # 0.1 (0.0-0.2); BASO % 0.6 % (0.0-2.0); EOS # 0.4 (0.0-0.7); EOS % 4.1 % (0-4.0); GRAN # 4.7 (1.4-6.5); HEMATOCRIT 36.8 % (37.0-47.0); HEMOGLOBIN 12.1 g/dl (12.5-16.0); LYMPH # 3.2 (1.2-3.4); LYMPH % 36.6 % (20.0-51.0); MEAN CELL VOLUME 89 fl (80.0-100.0); MEAN CORPUSCULAR HEMOGLOBIN 29 pg (27.0-31.0); MEAN CORPUSCULAR HGB CONC 33 g/dl (33.0-37.0); MEAN PLATELET VOLUME 8.9 fl (7.4-10.4); MONO # 0.5 (0.1-0.6); MONO % 5.5 % (1.7-9.3); PLATELET COUNT 308 K/mm3 (130-400); RED BLOOD COUNT 4.13 M/mm3 (4.10-5.30); REDCELL DISTRIBUTION WIDTH-CV 13.4 % (11.5-14.5)
[2019-08-26 02:05] LABS: ALBUMIN 4.1 gm/dL (3.5-5.0); BILIRUBIN,TOTAL 0.3 mg/dL (0.0-1.0); CALCIUM 9.1 mg/dL (8.4-10.2); CREATININE, serum 0.65 (0.52-1.25); TOTAL PROTEIN 6.8 gm/dL (6.4-8.2)
[2019-08-26 02:18] LABS: COLLECTION METHOD CLEAN CATCH
[2019-08-26 02:33] LABS: POTASSIUM 3.8 mmol/L (3.4-5.0)
[2019-08-26 02:41] LABS: PH 5 (5-8); SQUAMOUS EPITHELIAL 0-2 /hpf; URINE APPEARANCE Clear; URINE BACTERIA Rare /hpf; URINE BILIRUBIN Negative (NEGATIVE); URINE BLOOD Negative (NEGATIVE); URINE COLOR Yellow; URINE GLUCOSE Negative (NEGATIVE); URINE KETONE Negative (NEGATIVE); URINE LEUKOCYTE ESTERASE Negative (NEGATIVE); URINE NITRATE Negative (NEGATIVE); URINE PROTEIN(semi-quant) Negative (NEGATIVE); URINE UROBILINOGEN Negative (NEGATIVE)
[2019-08-26] MEDS ORDERED: PERCOCET 325 MG1 TA2 PO (03:33)
[2019-08-26 04:52] VITALS: PULSE 85
== END 2019-08-26 04:52 | disposition home or self-care (01) ==
LOC: COL.ER 01:10
PROVIDERS: Emergency Medicine
DX: N83.201 Unspecified ovarian cyst, right side (principal); Z90.710 Acquired absence of both cervix and uterus; Z98.890 Other specified postprocedural states
CPT/HCPCS: J1170; J2405; J2550; J3010; J7030; Q9967

== ENCOUNTER 2019-11-03 15:12 | Emergency (ER) | payer BC ==
[~2019-11-03] VITALS: Ht 162.6 cm; Wt 65.9 kg
[2019-11-03 15:17] VITALS: TEMP 97.2
[2019-11-03 16:11] LABS: ALANINE AMINOTRANSFERASE 189 U/L (9-52); ALBUMIN 4.4 gm/dL (3.5-5.0); ALKALINE PHOSPHATASE 73 U/L (50-136); ANION GAP 9 mmol/L (7-16); AST,SGOT 77 U/L (15-37); BILIRUBIN,TOTAL 0.4 mg/dL (0.0-1.0); BLOOD UREA NITROGEN 9 mg/dL (7-17); C-REACTIVE PROTEIN < 0.5 mg/dL (0.0-0.9); CALCIUM 9.5 mg/dL (8.4-10.2); CARBON DIOXIDE 25 mmol/L (22-30); CHLORIDE 105 mmol/L (98-107); CREATININE, serum 0.64 (0.52-1.25); GLUCOSE 107 mg/dL (74-106); LIPASE 35 U/L (23-300); POTASSIUM 3.7 mmol/L (3.4-5.0); SODIUM 139 mmol/L (137-145); TOTAL PROTEIN 7.2 gm/dL (6.4-8.2)
[2019-11-03 16:16] LABS: BASO % 0.4 % (0.0-2.0); EOS # 0.2 (0.0-0.7); EOS % 3.3 % (0-4.0); GRAN # 4.3 (1.4-6.5); GRAN % 58.4 % (42.2-75.2); HEMATOCRIT 39.5 % (37.0-47.0); LYMPH # 2.3 (1.2-3.4); MEAN CELL VOLUME 89 fl (80.0-100.0); MEAN CORPUSCULAR HEMOGLOBIN 29 pg (27.0-31.0); MEAN CORPUSCULAR HGB CONC 33 g/dl (33.0-37.0); MEAN PLATELET VOLUME 9.6 fl (7.4-10.4); MONO # 0.5 (0.1-0.6); MONO % 6.8 % (1.7-9.3); PLATELET COUNT 266 K/mm3 (130-400); RED BLOOD COUNT 4.44 M/mm3 (4.10-5.30)
[2019-11-03 16:52] LABS: COLLECTION METHOD CLEAN CATCH
[2019-11-03 17:07] LABS: MUCOUS Present /lpf; PH 7 (5-8); SQUAMOUS EPITHELIAL 0-2 /hpf; URINE APPEARANCE Hazy; URINE BACTERIA Rare /hpf; URINE BILIRUBIN Negative (NEGATIVE); URINE BLOOD Negative (NEGATIVE); URINE COLOR Yellow; URINE GLUCOSE Negative (NEGATIVE); URINE KETONE Negative (NEGATIVE); URINE LEUKOCYTE ESTERASE Negative (NEGATIVE); URINE NITRATE Negative (NEGATIVE); URINE PROTEIN(semi-quant) 1+ (NEGATIVE); URINE RBC 0-2 /hpf; URINE UROBILINOGEN Negative (NEGATIVE)
[2019-11-03 18:00] VITALS: BP 120/72; PULSE 67
== END 2019-11-03 18:00 | disposition home or self-care (01) ==
LOC: COL.ER 15:12
PROVIDERS: Emergency Medicine
DX: N83.201 Unspecified ovarian cyst, right side (principal); Z90.710 Acquired absence of both cervix and uterus; Z98.890 Other specified postprocedural states; Z90.89 Acquired absence of other organs
CPT/HCPCS: J2405; J2550; J3010; J7030; Q9967

== ENCOUNTER 2019-12-13 19:20 | Emergency (ER) | payer BC ==
[~2019-12-13] VITALS: Ht 162.6 cm; Wt 68.2 kg
[2019-12-13 20:11] LABS: COLLECTION METHOD CLEAN CATCH
[2019-12-13 20:16] LABS: BASO % 0.3 % (0.0-2.0); EOS # 0.2 (0.0-0.7); EOS % 2.2 % (0-4.0); GRAN % 54.3 % (42.2-75.2); HEMATOCRIT 39.7 % (37.0-47.0); HEMOGLOBIN 13.3 g/dl (12.5-16.0); LYMPH # 3.4 (1.2-3.4); LYMPH % 37.1 % (20.0-51.0); MEAN CELL VOLUME 88 fl (80.0-100.0); MEAN CORPUSCULAR HEMOGLOBIN 30 pg (27.0-31.0); MEAN CORPUSCULAR HGB CONC 34 g/dl (33.0-37.0); MEAN PLATELET VOLUME 9.2 fl (7.4-10.4); MONO # 0.5 (0.1-0.6); MONO % 5.8 % (1.7-9.3); PLATELET COUNT 255 K/mm3 (130-400); RED BLOOD COUNT 4.51 M/mm3 (4.10-5.30); REDCELL DISTRIBUTION WIDTH-CV 13.2 % (11.5-14.5)
[2019-12-13 20:20] LABS: PH 6 (5-8); SQUAMOUS EPITHELIAL 0-2 /hpf; URINE APPEARANCE Clear; URINE BACTERIA None Seen /hpf; URINE BILIRUBIN Negative (NEGATIVE); URINE BLOOD Negative (NEGATIVE); URINE COLOR Straw; URINE GLUCOSE Negative (NEGATIVE); URINE KETONE Negative (NEGATIVE); URINE LEUKOCYTE ESTERASE Negative (NEGATIVE); URINE NITRATE Negative (NEGATIVE); URINE PROTEIN(semi-quant) Negative (NEGATIVE); URINE RBC 0-2 /hpf; URINE UROBILINOGEN Negative (NEGATIVE)
[2019-12-13 20:29] LABS: ALANINE AMINOTRANSFERASE 33 U/L (9-52); ALBUMIN 4.6 gm/dL (3.5-5.0); ALKALINE PHOSPHATASE 56 U/L (50-136); ANION GAP 11 mmol/L (7-16); AST,SGOT 25 U/L (15-37); BILIRUBIN,TOTAL 0.3 mg/dL (0.0-1.0); BLOOD UREA NITROGEN 12 mg/dL (7-17); CALCIUM 9.4 mg/dL (8.4-10.2); CARBON DIOXIDE 23 mmol/L (22-30); CHLORIDE 108 mmol/L (98-107); CREATININE, serum 0.64 (0.52-1.25); GLUCOSE 87 mg/dL (74-106); LIPASE 114 U/L (23-300); POTASSIUM 3.8 mmol/L (3.4-5.0); SODIUM 141 mmol/L (137-145); TOTAL PROTEIN 7.4 gm/dL (6.4-8.2)
[2019-12-13 20:36] LABS: C-REACTIVE PROTEIN < 0.5 mg/dL (0.0-0.9)
[2019-12-13 21:20] LABS: TROPONIN-I < 0.012 ng/mL (0.000-0.035)
[2019-12-13 22:51] VITALS: BP 125/78; PULSE 80; TEMP 98.4
== END 2019-12-13 22:52 | disposition home or self-care (01) ==
LOC: COL.ER 19:20
PROVIDERS: Emergency Medicine
DX: R10.13 Epigastric pain (principal); F32.9 Major depressive disorder, single episode, unspecified; Z90.710 Acquired absence of both cervix and uterus
CPT/HCPCS: C9113; J1170; J2060; J2405; J2550; J7030

== ENCOUNTER 2019-12-17 14:47 | Emergency (ER) | payer BC ==
[~2019-12-17] VITALS: Ht 162.6 cm; Wt 68.2 kg
[2019-12-17 15:32] VITALS: TEMP 97.5
[2019-12-17 16:20] LABS: BASO % 0.4 % (0.0-2.0); EOS # 0.1 (0.0-0.7); EOS % 1.1 % (0-4.0); GRAN # 6.8 (1.4-6.5); HEMATOCRIT 40.6 % (37.0-47.0); HEMOGLOBIN 13.3 g/dl (12.5-16.0); LYMPH # 1.9 (1.2-3.4); LYMPH % 20.2 % (20.0-51.0); MEAN CELL VOLUME 89 fl (80.0-100.0); MEAN CORPUSCULAR HEMOGLOBIN 29 pg (27.0-31.0); MEAN CORPUSCULAR HGB CONC 33 g/dl (33.0-37.0); MEAN PLATELET VOLUME 9.3 fl (7.4-10.4); MONO # 0.5 (0.1-0.6); PLATELET COUNT 274 K/mm3 (130-400); RED BLOOD COUNT 4.57 M/mm3 (4.10-5.30); REDCELL DISTRIBUTION WIDTH-CV 13.2 % (11.5-14.5)
[2019-12-17 16:30] LABS: COLLECTION METHOD CLEAN CATCH
[2019-12-17 16:32] LABS: ALANINE AMINOTRANSFERASE 30 U/L (9-52); ALBUMIN 4.5 gm/dL (3.5-5.0); ALKALINE PHOSPHATASE 55 U/L (50-136); ANION GAP 9 mmol/L (7-16); AST,SGOT 26 U/L (15-37); BILIRUBIN,TOTAL 0.5 mg/dL (0.0-1.0); BLOOD UREA NITROGEN 13 mg/dL (7-17); CALCIUM 9.6 mg/dL (8.4-10.2); CARBON DIOXIDE 26 mmol/L (22-30); CHLORIDE 106 mmol/L (98-107); CREATININE, serum 0.81 (0.52-1.25); GLUCOSE 98 mg/dL (74-106); LIPASE 65 U/L (23-300); POTASSIUM 4.1 mmol/L (3.4-5.0); SODIUM 140 mmol/L (137-145); TOTAL PROTEIN 7.4 gm/dL (6.4-8.2)
[2019-12-17 16:34] LABS: C-REACTIVE PROTEIN < 0.5 mg/dL (0.0-0.9)
[2019-12-17 16:44] LABS: MUCOUS Present /lpf; PH 6 (5-8); SQUAMOUS EPITHELIAL 0-2 /hpf; URINE APPEARANCE Clear; URINE BACTERIA Rare /hpf; URINE BILIRUBIN Negative (NEGATIVE); URINE BLOOD Negative (NEGATIVE); URINE COLOR Yellow; URINE GLUCOSE Negative (NEGATIVE); URINE KETONE Negative (NEGATIVE); URINE LEUKOCYTE ESTERASE Negative (NEGATIVE); URINE NITRATE Negative (NEGATIVE); URINE PROTEIN(semi-quant) Negative (NEGATIVE); URINE RBC 0-2 /hpf; URINE UROBILINOGEN Negative (NEGATIVE)
[2019-12-17 17:32] VITALS: BP 143/89; PULSE 102
== END 2019-12-17 17:32 | disposition home or self-care (01) ==
LOC: COL.ER 14:47
PROVIDERS: Emergency Medicine; Physician Assistant
DX: R10.13 Epigastric pain (principal)
CPT/HCPCS: C9113; J1170; J2405; J7030

== ENCOUNTER 2019-12-19 10:02 | Day surgery (SDC) | payer BC ==
[~2019-12-19] VITALS: Ht 162.6 cm; Wt 69.1 kg
[2019-12-19] MEDS ORDERED: ATIVAN 0.50.5 MG/TAB PO (10:16)
[2019-12-19] MEDS ORDERED: VRAYLAR1.5 MG PO (10:17)
[2019-12-19 10:18] VITALS: BP 119/95; PULSE 85; TEMP 97.8
[2019-12-19 13:15] VITALS: BP 84/40; PULSE 89; TEMP 98.2
--- NOTE | 2019-12-19 13:15 | NUR ---
Patient brought back to bay 7 via cart. Ambulated to chair without difficulty, placed on monitors, stable. IV infusing without difficulty. Alert and oriented. will be here soon to bring pt home. Warm blanket provided, call mccullough within reach. LORENA Gandara at bedside for report. Requesting muffin and soda. WIll continue to monitor.
[2019-12-19 13:30] VITALS: BP 114/93; PULSE 90
--- NOTE | 2019-12-19 13:30 | NUR ---
Patient tolerating food and drink without difficulty. Denies pain or nasuea. Texted to come to hospital. Will continue to monitor.
[2019-12-19 13:45] VITALS: BP 103/67; PULSE 88
--- NOTE | 2019-12-19 13:45 | NUR ---
Patient ambulated to bathroom without difficulty. Vital signs stable. Pt states she would like to go home. IV removed. Discharge insructions reviewed, all questions answered. Pt to get dressed at this time.
--- NOTE | 2019-12-19 13:56 | NUR ---
Patient brought down to lobby via wheel chair. to drive patient home. Met at front door.
== END 2019-12-19 13:56 | disposition home or self-care (01) ==
LOC: SDCO 10:02
DX: K29.70 Gastritis, unspecified, without bleeding (principal); K21.9 Gastro-esophageal reflux disease without esophagitis; Z88.1 Allergy status to other antibiotic agents; Z88.5 Allergy status to narcotic agent; Z79.899 Other long term (current) drug therapy; F41.9 Anxiety disorder, unspecified; J45.909 Unspecified asthma, uncomplicated; F32.9 Major depressive disorder, single episode, unspecified; K58.9 Irritable bowel syndrome, unspecified; K85.90 Acute pancreatitis without necrosis or infection, unspecified
CPT/HCPCS: J1200; J2250; J2405; J3010; J7030

== ENCOUNTER 2019-12-28 19:02 | Emergency (ER) | payer BC ==
[~2019-12-28] VITALS: Ht 162.6 cm; Wt 65.9 kg
[~2019-12-28 19:02] MED LIST changes: +VRAYLAR1.5 MG PO
[2019-12-28 19:53] LABS: BASO % 0.1 % (0.0-2.0); GRAN # 10.4 (1.4-6.5); GRAN % 75.2 % (42.2-75.2); HEMATOCRIT 37.3 % (37.0-47.0); HEMOGLOBIN 12.4 g/dl (12.5-16.0); LYMPH # 2.3 (1.2-3.4); LYMPH % 16.9 % (20.0-51.0); MEAN CELL VOLUME 88 fl (80.0-100.0); MEAN CORPUSCULAR HEMOGLOBIN 29 pg (27.0-31.0); MEAN CORPUSCULAR HGB CONC 33 g/dl (33.0-37.0); MEAN PLATELET VOLUME 9.4 fl (7.4-10.4); MONO % 7.2 % (1.7-9.3); PLATELET COUNT 338 K/mm3 (130-400); RED BLOOD COUNT 4.25 M/mm3 (4.10-5.30); REDCELL DISTRIBUTION WIDTH-CV 13.2 % (11.5-14.5)
[2019-12-28 20:00] LABS: ALANINE AMINOTRANSFERASE 28 U/L (9-52); ALBUMIN 4.6 gm/dL (3.5-5.0); ALKALINE PHOSPHATASE 54 U/L (50-136); ANION GAP 8 mmol/L (7-16); AST,SGOT 21 U/L (15-37); BILIRUBIN,TOTAL 0.3 mg/dL (0.0-1.0); BLOOD UREA NITROGEN 13 mg/dL (7-17); CALCIUM 9.4 mg/dL (8.4-10.2); CARBON DIOXIDE 27 mmol/L (22-30); CHLORIDE 105 mmol/L (98-107); CREATININE, serum 0.64 (0.52-1.25); GLUCOSE 125 mg/dL (74-106); LIPASE 80 U/L (23-300); POTASSIUM 3.7 mmol/L (3.4-5.0); SODIUM 141 mmol/L (137-145); TOTAL PROTEIN 7.3 gm/dL (6.4-8.2)
[2019-12-28 20:00] LABS: COLLECTION METHOD CLEAN CATCH
[2019-12-28 20:05] LABS: C-REACTIVE PROTEIN < 0.5 mg/dL (0.0-0.9)
[2019-12-28 20:06] LABS: MUCOUS Present /lpf; PH 6 (5-8); SQUAMOUS EPITHELIAL 0-2 /hpf; URINE APPEARANCE Clear; URINE BACTERIA Rare /hpf; URINE BILIRUBIN Negative (NEGATIVE); URINE BLOOD Negative (NEGATIVE); URINE COLOR Yellow; URINE GLUCOSE Negative (NEGATIVE); URINE KETONE Negative (NEGATIVE); URINE LEUKOCYTE ESTERASE Negative (NEGATIVE); URINE NITRATE Negative (NEGATIVE); URINE PROTEIN(semi-quant) Negative (NEGATIVE); URINE RBC 0-2 /hpf
[2019-12-28 22:30] VITALS: BP 111/66; PULSE 74; TEMP 98.8
== END 2019-12-28 22:45 | disposition home or self-care (01) ==
LOC: COL.ER 19:02
PROVIDERS: Emergency Medicine
DX: R10.31 Right lower quadrant pain (principal); G89.29 Other chronic pain; Z90.710 Acquired absence of both cervix and uterus; Z90.89 Acquired absence of other organs
CPT/HCPCS: J1170; J1630; J2405; J7030; Q9967

== ENCOUNTER 2020-01-03 05:28 | Day surgery (SDC) | payer BC ==
[~2020-01-03] VITALS: Ht 162.6 cm; Wt 69.0 kg
[2020-01-03] VITALS (7 sets, daily range): BP systolic 96–110; BP diastolic 52–75; PULSE 74–101; TEMP 97.7–98.6
[2020-01-03] MEDS ORDERED: LEVBID0.375 MG PO (06:13)
[2020-01-03] MEDS ORDERED: TYLENOL 500MG500 MG PO (06:14)
[2020-01-03] MEDS ORDERED: MOTRIN 800800 MG/TAB PO (06:14)
[2020-01-03] MEDS ORDERED: MELATONIN5 M1 PO (06:15)
[2020-01-03] MEDS ORDERED: BENADRYL50 MG PO (06:15)
--- NOTE | 2020-01-03 06:52 | NUR ---
Patient up ambulating in the hallway. States that she just needs to walk. Father walking with the patient.
[2020-01-03] MEDS ORDERED: PERCOCET 325 MG1 TA2 PO (08:37)
--- NOTE | 2020-01-03 09:20 | NUR ---
Patient returns to room 8 per cart from PACU and is awake and alert. IV fluids infusing and site is free of redness. Siderails up x2 and call light in reach. Bandaids x2 on abdomen and lower abdominal dressing dry. Denies pain or nausea at the present time. Temp 98.6 and room air sats 94%.
--- NOTE | 2020-01-03 09:35 | NUR ---
Patient returns to room after being up to the bathroom and voiding. Tolerates activity well. IV continues to infuse and family in the room.
--- NOTE | 2020-01-03 09:50 | NUR ---
Resting and denies pain or nausea. Slight bloody drainage noted on lower abdominal 2x2 gauze dressing. Will continue to monitor.
--- NOTE | 2020-01-03 10:05 | NUR ---
Eating muffin and drinking juice. Continues to deny nausea.
--- NOTE | 2020-01-03 10:45 | NUR ---
Voids and states that she is ready to go home. Dr. Mcgrath notified and order obtained for discharge. Bandaid at umbilicus changed with moderate amount of bloody drainage. No active bleeding noted at site. Folded 2x2 and bandaid placed on site. Gauze dressing on lower abdomen also changed of moderate amount of bloody drainage and 2x2 and gauze dressing on site. No active bleeding noted. Dr. Mcgrath was informed of drainage and patient maybe discharged. IV discontinued and patient dresses self.
--- NOTE | 2020-01-03 10:55 | NUR ---
Given dismissal instructions and voices understanding of these. Provided script for Percocet and follow up appointment made.
--- NOTE | 2020-01-03 11:07 | NUR ---
Patient dismissed to home driven by family and taken to the front door per wheelchair and assisted into vehicle with instructions in hand.
== END 2020-01-03 11:07 | disposition home or self-care (01) ==
LOC: SDCO 05:28
DX: N80.3 Endometriosis of pelvic peritoneum (principal); N83.01 Follicular cyst of right ovary; J32.9 Chronic sinusitis, unspecified; K21.9 Gastro-esophageal reflux disease without esophagitis; G89.29 Other chronic pain; R10.2 Pelvic and perineal pain; G43.909 Migraine, unspecified, not intractable, without status migrainosus; F41.9 Anxiety disorder, unspecified; F32.9 Major depressive disorder, single episode, unspecified; Z88.1 Allergy status to other antibiotic agents; Z88.5 Allergy status to narcotic agent; Z88.8 Allergy status to other drugs, medicaments and biological substances; Z90.710 Acquired absence of both cervix and uterus
CPT/HCPCS: J1100; J1170; J1956; J2405; J2704; J3010; J7120

== ENCOUNTER 2020-01-06 10:25 | Emergency (ER) | payer SELFPAY ==
[~2020-01-06] VITALS: Ht 162.6 cm; Wt 65.9 kg
[~2020-01-06 10:25] MED LIST changes: +BENADRYL50 MG PO; +MELATONIN5 M1 PO; +MOTRIN 800800 MG/TAB PO
[2020-01-06 10:31] VITALS: TEMP 98
[2020-01-06 11:22] LABS: COLLECTION METHOD CLEAN CATCH
[2020-01-06 11:28] LABS: BASO # 0.1 (0.0-0.2); BASO % 0.6 % (0.0-2.0); EOS # 0.3 (0.0-0.7); EOS % 3.4 % (0-4.0); GRAN # 5.1 (1.4-6.5); GRAN % 59.3 % (42.2-75.2); HEMATOCRIT 39.3 % (37.0-47.0); HEMOGLOBIN 12.7 g/dl (12.5-16.0); LYMPH # 2.5 (1.2-3.4); MEAN CELL VOLUME 91 fl (80.0-100.0); MEAN CORPUSCULAR HEMOGLOBIN 29 pg (27.0-31.0); MEAN CORPUSCULAR HGB CONC 32 g/dl (33.0-37.0); MEAN PLATELET VOLUME 9.4 fl (7.4-10.4); MONO # 0.6 (0.1-0.6); MONO % 7.2 % (1.7-9.3); PLATELET COUNT 241 K/mm3 (130-400); RED BLOOD COUNT 4.33 M/mm3 (4.10-5.30); REDCELL DISTRIBUTION WIDTH-CV 13.1 % (11.5-14.5)
[2020-01-06 11:31] LABS: MUCOUS Present /lpf; PH 6 (5-8); URINE APPEARANCE Hazy; URINE BACTERIA Rare /hpf; URINE BILIRUBIN Negative (NEGATIVE); URINE BLOOD Negative (NEGATIVE); URINE COLOR Yellow; URINE GLUCOSE Negative (NEGATIVE); URINE KETONE Negative (NEGATIVE); URINE LEUKOCYTE ESTERASE Negative (NEGATIVE); URINE NITRATE Negative (NEGATIVE); URINE PROTEIN(semi-quant) Negative (NEGATIVE); URINE UROBILINOGEN Negative (NEGATIVE)
[2020-01-06 11:38] LABS: BILIRUBIN,TOTAL 0.5 mg/dL (0.0-1.0); CALCIUM 9.3 mg/dL (8.4-10.2); CREATININE, serum 0.74 (0.52-1.25); POTASSIUM 3.8 mmol/L (3.4-5.0); TOTAL PROTEIN 6.8 gm/dL (6.4-8.2)
[2020-01-06 11:41] LABS: C-REACTIVE PROTEIN 0.5 mg/dL (0.0-0.9)
[2020-01-06] MEDS ORDERED: PERCOCET 325 MG1 TA2 PO (13:22)
[2020-01-06 13:36] VITALS: BP 124/76; PULSE 86
== END 2020-01-06 13:45 | disposition home or self-care (01) ==
LOC: COL.ER 10:25
PROVIDERS: Nurse Practitioner
DX: R10.31 Right lower quadrant pain (principal); G89.18 Other acute postprocedural pain; F41.9 Anxiety disorder, unspecified; F32.9 Major depressive disorder, single episode, unspecified; G43.909 Migraine, unspecified, not intractable, without status migrainosus; Z90.710 Acquired absence of both cervix and uterus; Z98.890 Other specified postprocedural states; Z90.89 Acquired absence of other organs
CPT/HCPCS: J1170; J2405; J2550; J7030; Q9967

== ENCOUNTER 2020-01-15 18:01 | Emergency (ER) | payer SELFPAY ==
[~2020-01-15] VITALS: Ht 162.6 cm; Wt 65.9 kg
[2020-01-15 18:10] VITALS: TEMP 98.6
[2020-01-15 19:05] LABS: BASO % 0.4 % (0.0-2.0); EOS # 0.2 (0.0-0.7); EOS % 2.6 % (0-4.0); GRAN # 5.4 (1.4-6.5); GRAN % 57.5 % (42.2-75.2); LYMPH # 3.1 (1.2-3.4); LYMPH % 32.9 % (20.0-51.0); MEAN CELL VOLUME 88 fl (80.0-100.0); MEAN CORPUSCULAR HEMOGLOBIN 29 pg (27.0-31.0); MEAN CORPUSCULAR HGB CONC 33 g/dl (33.0-37.0); MEAN PLATELET VOLUME 9.4 fl (7.4-10.4); MONO # 0.6 (0.1-0.6); MONO % 6.3 % (1.7-9.3); PLATELET COUNT 270 K/mm3 (130-400); RED BLOOD COUNT 4.18 M/mm3 (4.10-5.30); REDCELL DISTRIBUTION WIDTH-CV 13.4 % (11.5-14.5)
[2020-01-15 19:08] LABS: HEMATOCRIT 36.8 % (37.0-47.0)
[2020-01-15 19:11] LABS: COLLECTION METHOD CLEAN CATCH
[2020-01-15 19:18] LABS: ALBUMIN 4.4 gm/dL (3.5-5.0); BILIRUBIN,TOTAL 0.4 mg/dL (0.0-1.0); CALCIUM 9.6 mg/dL (8.4-10.2); CREATININE, serum 0.62 (0.52-1.25); POTASSIUM 3.5 mmol/L (3.4-5.0); TOTAL PROTEIN 7.4 gm/dL (6.4-8.2)
[2020-01-15 19:22] LABS: MUCOUS Present /lpf; PH 6 (5-8); URINE APPEARANCE Clear; URINE BACTERIA Occasional /hpf; URINE BILIRUBIN Negative (NEGATIVE); URINE BLOOD Negative (NEGATIVE); URINE COLOR Yellow; URINE GLUCOSE Negative (NEGATIVE); URINE KETONE Negative (NEGATIVE); URINE LEUKOCYTE ESTERASE Negative (NEGATIVE); URINE NITRATE Negative (NEGATIVE); URINE PROTEIN(semi-quant) Negative (NEGATIVE); URINE RBC None Seen /hpf; URINE UROBILINOGEN Negative (NEGATIVE)
[2020-01-15 20:21] VITALS: BP 130/70; PULSE 78
== END 2020-01-15 20:22 | disposition home or self-care (01) ==
LOC: COL.ER 18:01
PROVIDERS: Physician Assistant
DX: G89.18 Other acute postprocedural pain (principal); R10.9 Unspecified abdominal pain; Z79.1 Long term (current) use of non-steroidal anti-inflammatories (NSAID); Z79.891 Long term (current) use of opiate analgesic; Z90.722 Acquired absence of ovaries, bilateral
CPT/HCPCS: J1170; J2405; J7030

== ENCOUNTER 2020-11-03 10:48 | Day surgery (SDC) | payer OTHER ==
[~2020-11-03] VITALS: Ht 162.6 cm; Wt 58.9 kg
[2020-11-03] VITALS (8 sets, daily range): BP systolic 94–124; BP diastolic 58–84; PULSE 58–88; TEMP 97.5–98.5
[2020-11-03] MEDS ORDERED: SINGULAIR 110 MG/TAB PO (11:17)
[2020-11-03] MEDS ORDERED: ZOFRAN ODT4 MG PO (11:19)
[2020-11-03] MEDS ORDERED: BENTYL 10MG10 MG/CAP PO (11:20)
[2020-11-03] MEDS ORDERED: PEPCID 20MG TAB20 MG PO (11:20)
[2020-11-03] MEDS ORDERED: SEROQUEL 2525 MG/TAB PO (11:21)
--- NOTE | 2020-11-03 13:29 | NUR ---
1245 TO [facility] VIA CART. PATIENT AMBULATED FROM CART TO CHAIR WITH SBA. PATIENT TEARFUL AND RESTLESS. C/O PAIN TO ABDOMEN. REPORTS THAT PAIN IS 8/[address] ORNELAS NOTIFIED. NEW ORDERS RECIEVED. PHARMACY CALLED FOR DILAUDID. VSS. WARM BLANKET GIVEN TO PLACE ON ABDOMEN. WILL CONTINUE TO MONITOR. 1300 PATIENT REMAINS TEARFUL AND RESTLESS. ENCOURAGE TO TAKE SLOW, DEEP BREATHS. VSS. 1310 DILAUDID 0.5 MG SIVP GIVEN PER VO FROM DR. ORNELAS. PATIENT'S VS REMAIN STABLE. 1315 PATIENT REQUESTED TO MOVE TO A CART. PATIENT AMBULATED TO CART JUST OUTSIDE OF BAY 3. PLACED CART IN BAY IN PLACE OF RECLINER. PATIENT REPORTS IMPROVED COMFORT. RATES 4/10 ON NUMERICAL PAIN SCALE. PATIENT APPEARS MORE COMFORTABLE. VSS.
--- NOTE | 2020-11-03 14:02 | NUR ---
1340 DR. ORNELAS IN SPEAKING WITH PATIENT. PATIENT RATES PAIN 8/10. VERY RESTLESS. NEW ORDERS RECIEVED. PHARMACY NOTIFIED TO BRING DILAUDID 0.5 MG.
--- NOTE | 2020-11-03 14:09 | NUR ---
1405 DILAUDID 0.5 MG SIVP GIVEN FOR REPORT OF PAIN RATED 8/10 ON PAIN SCALE.
--- NOTE | 2020-11-03 14:22 | NUR ---
1420 PERCOCET 5/325 MG PO GIVEN WITH A SIP OF WATER AND BITE OF JELLO PO.
--- NOTE | 2020-11-03 16:17 | NUR ---
PT TRANSFERRED FROM POST-OP BY PACU NURSES, PT WALKED FROM DOORWAY TO BED IN ROOM 330 AROUND 1610. PT RATES PAIN AT 5/10 CURRENTLY. LSCTA, HEART SOUNDS NORMAL, BOWEL SOUNDS AUDIBLE. NEXT POST-OP VITALS DUE AT 1645. AWAITING ORDERS CURRENTLY.
--- NOTE | 2020-11-03 16:19 | NUR ---
1500 PATIENT REPORTS NAUSEA AFTER GETTING UP TO BR. ZOFRAN 4 MG SIVP GIVEN. 1530 PATIENT REPORT INCREASING PAIN. RATES 6/[address] ORNELAS NOTIFIED. NEW ORDERS RECIEVED. DILAUDID 0.5 MG SIVP GIVEN PER ORDER. 1600 REPORT CALLED TO LORENA PHILLIPS. PATIENT IS BEING ADMITTED TO SURGICAL FLOOR FOR OBSEVATION FOR PAIN CONTROL. 1610 PATIENT TRANSFERRED TO SURGICAL FLOOR VIA CART. PATIENT AMBULATED TO BED WITH SBA. CARE OF PATIENT TO LORENA PHILLIPS. PATIENT BELONGINGS TRANSPORTED WITH PATIENT.
--- NOTE | 2020-11-03 18:39 | NUR ---
PT C/O INCREASED PAIN AN HOUR AFTER IV DILAUDED 12.5 MG IS GIVEN. QUINCY RAMOS WAS CALLED AND SHE ORDERED PERCOCET Q4 HOURS. PT IS UNHAPPY WITH THIS, STATES IT WILL NOT HELP AT ALL. QUINCY RECALLED TO SEE IF ANYTHING ELSE CAN BE DONE, SHE STATES SHE CANNOT ORDER ANYTHING ELSE. PT IN TEARS AND VERBALLY STATES SHE DOESN'T UNDERSTAND WHY SHE WAS ADMITTED FOR PAIN CONTROL IF WE WON'T CONTROL HER PAIN. PT UP TO RESTROOM AND HEAT PAD UTILIZED.
[2020-11-04 03:10] VITALS: BP 97/49; PULSE 55; TEMP 97.9
--- NOTE | 2020-11-04 07:16 | NUR ---
Patient lying in bed at this time, call light in reach and this nurse received report from night nurse.
[2020-11-04 07:47] LABS: BASO % 0.5 % (0.0-2.0); EOS # 0.2 (0.0-0.7); EOS % 2.7 % (0-4.0); GRAN # 2.5 (1.4-6.5); GRAN % 42.1 % (42.2-75.2); HEMOGLOBIN 10.6 g/dl (12.5-16.0); LYMPH # 2.9 (1.2-3.4); LYMPH % 48.9 % (20.0-51.0); MEAN CELL VOLUME 92 fl (80.0-100.0); MEAN CORPUSCULAR HEMOGLOBIN 30 pg (27.0-31.0); MEAN CORPUSCULAR HGB CONC 33 g/dl (33.0-37.0); MEAN PLATELET VOLUME 9.5 fl (7.4-10.4); MONO # 0.3 (0.1-0.6); MONO % 5.6 % (1.7-9.3); PLATELET COUNT 279 K/mm3 (130-400); RED BLOOD COUNT 3.55 M/mm3 (4.10-5.30); REDCELL DISTRIBUTION WIDTH-CV 12.7 % (11.5-14.5)
[2020-11-04 07:52] LABS: HEMATOCRIT 32.5 % (37.0-47.0)
[2020-11-04 07:57] LABS: ALBUMIN 3.5 gm/dL (3.5-5.0); BILIRUBIN,TOTAL 0.3 mg/dL (0.0-1.0); CALCIUM 8.9 mg/dL (8.4-10.2); CREATININE, serum 0.61 (0.52-1.25); POTASSIUM 3.3 mmol/L (3.4-5.0); TOTAL PROTEIN 6.1 gm/dL (6.4-8.2)
[2020-11-04 08:04] LABS: PRE ALBUMIN 21.4 mg/dL (17.6-36.0)
[2020-11-04 10:56] VITALS: BP 90/54; PULSE 62
--- NOTE | 2020-11-04 11:09 | NUR ---
Patient reported having pain throughout the night so did not sleep well. She was given prn dilauded this morning to help get pain under control. She is currently resting in bed, call light in reach and denies any questions. Patient reported nausea this morning when breakfast was served. She was given prn zofran that was effective and she was able to get her roll and keep it down. Will continue to monitor.
--- NOTE | 2020-11-04 11:14 | NUR ---
SATNAM met with the patient to discuss discharge plan. The patient lives in [place] with her , Girish (ph#[phone]), and their [id number] daughter. She is an RN at [employer]. She reports independence with ADLs and does not have any DME. The patient's PCP is Dr. Gray Aleman and she receives her medications from [facility]. She reports no difficulties obtaining her meds. The patient does not have a DPOA-HC, but she was interested in obtaining a form. SATNAM provided. The patient plans to return home with her family upon discharge. No additional needs at this time.
[2020-11-04 12:29] VITALS: BP 94/54; PULSE 63
[2020-11-04] MEDS ORDERED: PERCOCET 325 MG1 TA2 PO (14:09)
--- NOTE | 2020-11-04 15:47 | NUR ---
Patient Health Summary, Discharge Summary and Home Meds printed and reviewed with patient. Stressed importance of follow up appointments. Belongings gathered by patient including cell phone and other misc. items. Patient transported via wheelchair by LATHE OPERATOR [employer]by and seatbelted for ride home with friend. Patient denied questions. Dr. Chong wrote an order stating that it was okay for patient to return to work on 11/10/20 with no restrictions. This was handed to patient and she voiced understanding.
== END 2020-11-04 15:30 | disposition home or self-care (01) ==
LOC: SDCO 10:48 → JCC 16:11 → SDCO 11-04 15:30
PROVIDERS: Student in an Organized Health Care Education/Training Program
DX: K31.5 Obstruction of duodenum (principal); K83.4 Spasm of sphincter of Oddi; K83.8 Other specified diseases of biliary tract; R94.5 Abnormal results of liver function studies; K86.1 Other chronic pancreatitis; F41.9 Anxiety disorder, unspecified; F32.9 Major depressive disorder, single episode, unspecified; K21.9 Gastro-esophageal reflux disease without esophagitis; F51.04 Psychophysiologic insomnia; J32.8 Other chronic sinusitis; G89.29 Other chronic pain; R10.9 Unspecified abdominal pain; G47.00 Insomnia, unspecified; Z88.6 Allergy status to analgesic agent; Z79.899 Other long term (current) drug therapy; Z88.1 Allergy status to other antibiotic agents; Z88.5 Allergy status to narcotic agent; Z88.0 Allergy status to penicillin; Z86.718 Personal history of other venous thrombosis and embolism
CPT/HCPCS: OP; C1769; J1170; J2405; J2550; J2704; J3010; J7120; Q9967